=== PATIENT | male | born 2000 | race Caucasian/White ===

== ENCOUNTER 2022-12-27 15:49 | Emergency (ER) | payer OTHER ==
[~2022-12-27] VITALS: Ht 182.9 cm; Wt 90.9 kg
[2022-12-27] MEDS ORDERED: HYDROCODONE/ACETAMINOPHEN 5-325 MG TABLET PO ONE (16:30)
[2022-12-27 17:07] VITALS: BP 141/80
[2022-12-27] MEDS ORDERED: TRAM-559 PO (17:08)
== END 2022-12-27 17:23 | disposition home or self-care (01) ==
LOC: EMS 15:52
DX: S92.354A Nondisplaced fracture of fifth metatarsal bone, right foot, initial encounter for closed fracture (principal); F12.90 Cannabis use, unspecified, uncomplicated; X58.XXXA Exposure to other specified factors, initial encounter; Y93.89 Activity, other specified; Y92.89 Other specified places as the place of occurrence of the external cause; Y99.8 Other external cause status
CPT/HCPCS: 99283